=== PATIENT | female | born 1980 | race Caucasian/White ===

== ENCOUNTER 2021-04-04 19:44 | Inpatient (IN) | payer BC ==
[2021-04-04] MEDS ORDERED: HYDROcodone/Acetaminophen 5/325 mg Tablet PO PRN ×2 (20:37)
[2021-04-04] MEDS ORDERED: Insulin Regular 300 UNITS/3 ML VIAL SC PRN (20:37)
[2021-04-04] MEDS ORDERED: Lidocaine 1% (PF) 30 ML VIAL SC PRN (20:37)
[2021-04-04] MEDS ORDERED: Butorphanol Tartrate 1 MG/ML VIAL SLOW IVP PRN (20:37)
[2021-04-04] MEDS ORDERED: Ibuprofen 800 MG TAB PO PRN (20:37)
[2021-04-04] MEDS ORDERED: NS w/ Oxytocin 30 units 500 ML IVPB SCH (20:37)
[2021-04-04] MEDS ORDERED: Ondansetron PF 4 MG/2 ML Vial IVP PRN (20:37)
[2021-04-04] MEDS ORDERED: Dextrose 5% in Water 1,000 ML IV PRN (20:37)
[2021-04-04] MEDS ORDERED: Promethazine HCl 25 MG/ML VIAL IM PRN (20:37)
[2021-04-04] MEDS ORDERED: Dextrose 50% Abboject 50 ML SYRINGE SLOW IVP PRN (20:37)
[2021-04-04] MEDS ORDERED: hydrALAZINE 20 MG/ML VIAL SLOW IVP PRN (20:37)
[2021-04-04] MEDS ORDERED: NS / Oxytocin 40 units/1000ml 1,000 ML IV PRN (20:37)
[2021-04-04] MEDS ORDERED: NS w/ Oxytocin 30 units 500 ML IV PRN (21:17)
[2021-04-04 21:47] LABS: Hemoglobin 11.3 g/dL (12.0-15.5); Mean Corpuscular HGB CONC 33.4 g/dL (32.0-36.0); Mean Corpuscular Hemoglobin 28.9 pg (27.0-33.0); Mean Corpuscular Volume 86.4 fl (81.6-98.3); Mean Platelet Volume 9.7 fl (7.4-10.4); Platelet Count 200 10x3/uL (150-450); Red Blood Cell (RBC) Count 3.91 10x6/uL (3.90-5.03); White Blood Cell (WBC) Count 7.8 10x3/uL (3.5-10.5)
[2021-04-04 22:01] VITALS: BMI 34.4
[2021-04-04 22:12] LABS: Hep B Surf Ag Non-Reactive S/CO (NonReactive); Syphilis Antibody Nonreactive (Nonreactive); Syphilis Antibody Index 0.02 S/CO (<1.00 Non-Reactive)
[2021-04-04 22:48] LABS: HBSAg Index 0.15 S/CO (0-0.99)
[2021-04-05] MEDS ORDERED: Fentanyl 4 mcg/Bup 0.1% Cadd 100 ML ONE ×2 (13:58→21:55)
[2021-04-05] MEDS ORDERED: Eucerin (Mineral Oil/Petrolatum,White) 30 gm Jar TOP PRN (14:32)
[2021-04-05] MEDS ORDERED: Acetaminophen 325 MG TAB PO PRN (14:32)
[2021-04-05] MEDS ORDERED: Promethazine HCl 25 MG/ML VIAL IM PRN (14:32)
[2021-04-05] MEDS ORDERED: Naloxone HCl 0.4 mg/ml Vial IVP PRN ×2 (14:32)
[2021-04-05] MEDS ORDERED: ePHEDrine 50 MG/ML VIAL SLOW IVP PRN (14:32)
[2021-04-05] MEDS ORDERED: Ondansetron PF 4 MG/2 ML Vial IVP PRN (14:32)
[2021-04-05] MEDS ORDERED: diphenhydrAMINE 50 MG/ML VIAL IVP PRN (14:32)
[2021-04-05] MEDS ORDERED: Lactated Ringer's 500 ML IV PRN (14:32)
[2021-04-05] MEDS ORDERED: Fentanyl 4 mcg/Bupivacaine 0.1% Cassette 100 ML EPIDURAL SCH (14:45)
[2021-04-05] MEDS ORDERED: Communication Order-Pharmacy FS SCH (14:45)
[2021-04-05] MEDS: Fentanyl 4 mcg/Bupivacaine 0.1% Cassette 100 ML EPIDURAL SCH (21:58)
[2021-04-06] MEDS: Fentanyl 4 mcg/Bupivacaine 0.1% Cassette 100 ML EPIDURAL SCH (06:27)
[2021-04-06] MEDS: Lactated Ringer's 1,000 ML IV SCH (06:37)
[2021-04-06] MEDS ORDERED: Lidocaine 1% (PF) 30 ML VIAL ONE (06:51)
[2021-04-06] MEDS ORDERED: Milk Of Magnesia 30 ML UDCUP PO PRN (08:52)
[2021-04-06] MEDS ORDERED: diphenhydrAMINE 25 MG CAP PO PRN (08:52)
[2021-04-06] MEDS ORDERED: Lanolin Ointment 7 GM TUBE TOP PRN (08:52)
[2021-04-06] MEDS ORDERED: Benzocaine-Menthol 82.5 ML CAN TOP PRN (08:52)
[2021-04-06] MEDS ORDERED: HYDROcodone/Acetaminophen 5/325 mg Tablet PO PRN ×2 (08:52)
[2021-04-06] MEDS ORDERED: Bisacodyl 10 MG SUPP PR PRN (08:52)
[2021-04-06] MEDS ORDERED: Preparation H Ointment 28 GM TUBE PR PRN (08:52)
[2021-04-06] MEDS ORDERED: Ondansetron PF 4 MG/2 ML Vial IVP PRN (08:52)
[2021-04-06] MEDS ORDERED: Adacel (T-DAP) 0.5 ML SYRINGE IM ONE (08:52)
[2021-04-06] MEDS ORDERED: hydrALAZINE 20 MG/ML VIAL SLOW IVP PRN (08:52)
[2021-04-06] MEDS ORDERED: NS w/ Oxytocin 30 units 500 ML IVPB SCH (09:15)
[2021-04-06] MEDS ORDERED: Ferrous Sulfate 325 MG TAB PO SCH (09:15)
[2021-04-06] MEDS ORDERED: Boostrix 0.5 ML (Tdap) VIAL IM ONE ×2 (09:15→09:30)
[2021-04-06] MEDS: Prenatal Vitamin 1 TAB PO SCH (11:36)
[2021-04-06] MEDS: Docusate Calcium (SURFAK) 240 MG CAP PO SCH ×2 (11:36→21:55)
[2021-04-06] MEDS: Ibuprofen 800 MG TAB PO SCH ×2 (14:31→21:54)
[2021-04-06] MEDS: Ferrous Sulfate 325 MG TAB PO SCH (15:13)
[2021-04-07] MEDS: Ibuprofen 800 MG TAB PO SCH (06:03)
[2021-04-07] MEDS: Ferrous Sulfate 325 MG TAB PO SCH (08:20)
[2021-04-07] MEDS: Lactated Ringer's 1,000 ML IV SCH ×2 (08:26→12:05)
[2021-04-07] MEDS: Docusate Calcium (SURFAK) 240 MG CAP PO SCH (08:53)
[2021-04-07] MEDS: Prenatal Vitamin 1 TAB PO SCH (08:53)
[2021-04-07 11:41] VITALS: BP 129/81; TEMP 98.3
== END 2021-04-07 12:50 | disposition home or self-care (01) | DRG 807 ==
LOC: CSHLD 19:44 → CSHPP 04-06 10:40
PROVIDERS: ADMIT Obstetrics & Gynecology; ATTEND Obstetrics & Gynecology
PROC: 10E0XZZ Delivery of Products of Conception, External Approach (ICD-10-PCS; principal; 2021-04-06)
PROC: 0KQM0ZZ Repair Perineum Muscle, Open Approach (ICD-10-PCS; 2021-04-06)
PROC: 4A0HXCZ Measurement of Products of Conception, Cardiac Rate, External Approach (ICD-10-PCS; 2021-04-06)
DX: O24.424 Gestational diabetes mellitus in childbirth, insulin controlled (principal); Z37.0 Single live birth; Z3A.37 37 weeks gestation of pregnancy; O70.1 Second degree perineal laceration during delivery; O99.284 Endocrine, nutritional and metabolic diseases complicating childbirth; E03.9 Hypothyroidism, unspecified; E88.81 Metabolic syndrome and other insulin resistance
CPT/HCPCS: 36415; 36416; 51702; 85014; 85018; 85027; 86780; 86850; 86900; 86901; 87340; J2590